=== PATIENT | female | born 1950 | race Caucasian/White ===

== ENCOUNTER 2018-06-23 00:57 | Emergency (ER) | payer MEDICARE, OTHER ==
[2018-06-23] MEDS ORDERED: Sodium Chloride 0.9% 0 ML ONE (01:01)
[2018-06-23 01:09] VITALS: BP 158/70
[2018-06-23] MEDS ORDERED: Sodium Chloride 0.9% 10 ML Syringe FLUSH PRN (01:31)
[2018-06-23] MEDS ORDERED: Ondansetron 4 MG/2 ML SDV IVPUSH ONE (01:31)
[2018-06-23] MEDS ORDERED: Sodium Chloride 0.9% 1,000 ML IV ONE (01:38)
[2018-06-23] MEDS ORDERED: Acetaminophen 325 MG Tab PO ONE (01:39)
--- NOTE | 2018-06-23 01:48 | EDM.PDOC ---
ED HPI GENERAL MEDICAL PROBLEM - General Chief Complaint: Gastrointestinal Problem Stated Complaint: Vomiting Time Seen by Provider: 06/23/18 01:30 Source of Information: Reports: Patient History Limitations: Reports: No Limitations - History of Present Illness INITIAL COMMENTS - FREE TEXT/NARRATIVE: Patient is a 67-year-old female who presents to the emergency department this morning with a complaint of nausea and vomiting. Patient states that approximately 24 hours ago she began a vomiting episode and vomited 5-6 times since Patient states that she is an insulin-dependent diabetic and does have poor diabetic control. Patient noticed that urine has become dark, but denies flank pain. Patient also denies chest pain, shortness of breath, abdominal pain , headache, or change in medication. Onset: Gradual Onset Date: 06/21/18 Duration: Day(s): Severity: Mild Improves with: Reports: None Worsens with: Reports: None Associated Symptoms: Reports: Nausea/Vomiting. Denies: Chest Pain, Cough, Fever /Chills, Headaches, Shortness of Breath - Related Data Allergies Allergy/AdvReac Type Severity Reaction Status Date / Time No Known Drug Allergies Allergy Cannot Verified 06/23/18 01:16 Remember Home Meds: Home Meds Aspirin [Adult Low Dose Aspirin EC] 81 mg PO DAILY 09/11/15 [History] Cholecalciferol (Vitamin D3) [Vitamin D3] 5,000 unit PO BID 09/11/15 [History] Cinnamon Bark [Cinnamon] 500 mg PO BID 09/11/15 [History] Clotrimazole/Betamethasone Dip [Lotrisone Cream] 45 gm TP BID PRN 09/11/15 [ History] DULoxetine [Cymbalta] 60 mg PO DAILY 09/11/15 [History] Insulin Detemir [Levemir] 60 unit SQ BEDTIME 09/11/15 [History] atorvaSTATin [Lipitor] 20 mg PO BEDTIME 09/11/15 [History] Cephalexin [Keflex] 750 mg PO BID #14 capsule 06/23/18 [Rx] Insulin Aspart [NovoLOG] 0 units SQ ASDIRECTED 06/23/18 [History] Metoprolol Succinate [Toprol XL] 25 mg PO DAILY 06/23/18 [History] Past Medical History HEENT History: Reports: Impaired Vision, Other (See Below) Other HEENT History: drainage to left ear. Cardiovascular History: Reports: CAD, Hypertension Respiratory History: Reports: Sleep Apnea, Other (See Below) Other Respiratory History: CPAP Gastrointestinal History: Reports: Hemorrhoids Genitourinary History: Reports: UTI, Recurrent [employer]GER History: Reports: Musculoskeletal History: Reports: Other (See Below) Other Musculoskeletal History: Ciatica Neurological History: Reports: Neuropathy, Diabetic Psychiatric History: Reports: Developmental Delay Endocrine/Metabolic History: Reports: Diabetes, Type II - Infectious Disease History Infectious Disease History: Reports: Measles - Past Surgical History HEENT Surgical History: Reports: None Cardiovascular Surgical History: Reports: None Respiratory Surgical History: Reports: None GI Surgical History: Reports: Cholecystectomy Female Surgical History: Reports: None Endocrine Surgical History: Reports: None Neurological Surgical History: Reports: None Musculoskeletal Surgical History: Reports: None Dermatological Surgical History: Reports: None Social & Family History - Family History Cardiac: Reports: Heart Failure Endocrine/Metabolic: Reports: Diabetes, type II Oncologic: Reports: Bone, Lung, Prostate ED ROS GENERAL - Review of Systems Review Of Systems: ROS reveals no pertinent complaints other than HPI. Constitutional: Reports: No Symptoms HEENT: Reports: No Symptoms Respiratory: Reports: No Symptoms Cardiovascular: Reports: No Symptoms Endocrine: Reports: No Symptoms GI/Abdominal: Reports: Nausea, Vomiting. Denies: Abdominal Pain, Black Stool, Bloody Stool, Constipation, Diarrhea : Reports: No Symptoms Musculoskeletal: Reports: No Symptoms Skin: Reports: No Symptoms Neurological: Reports: No Symptoms Psychiatric: Reports: No Symptoms Hematologic/Lymphatic: Reports: No Symptoms Immunologic: Reports: No Symptoms ED EXAM, GI/ABD - Physical Exam Exam: See Below Exam Limited By: No Limitations General Appearance: Alert, WD/WN, No Apparent Distress Eyes: Bilateral: Normal Appearance Nose: Normal Inspection, Normal Mucosa, No Blood Throat/Mouth: Normal Inspection, Normal Oropharynx, No Airway Compromise Head: Atraumatic, Normocephalic Neck: Normal Inspection, Supple, Non-Tender Respiratory/Chest: No Respiratory Distress, Lungs Clear, Normal Breath Sounds, No Accessory Muscle Use, Chest Non-Tender Cardiovascular: Tachycardia GI/Abdominal Exam: Normal Bowel Sounds, Soft, Non-Tender, No Organomegaly, No Distention, No Abnormal Bruit, No Mass Back Exam: Normal Inspection. No: CVA Tenderness (L), CVA Tenderness (R) Extremities: Normal Inspection, No Pedal Edema Neurological: Alert, Oriented, Normal Cognition Psychiatric: Normal Affect, Normal Mood Skin Exam: Warm, Intact, Normal Color, No Rash, Diaphoretic (Mildly) Lymphatic: No Adenopathy Course - Vital Signs Last Recorded V/S: Last Vital Signs Temp 98.7 F 06/23/18 02:14 Pulse 128 H 06/23/18 01:01 Resp 20 06/23/18 01:01 BP 158/70 H 06/23/18 01:01 Pulse Ox 98 06/23/18 01:01 - Orders/Labs/Meds Orders: Active Orders 24 hr Category Date Time Status Peripheral IV Care [RC] . DIRECTED Care 06/23/18 01:31 Ordered CULTURE URINE [RM] Stat Lab 06/23/18 01:10 Received Sodium Chloride 0.9% @ 999 MLS/HR (1000ml) Med 06/23/18 01:38 Ordered Sodium Chloride 0.9% [Normal Saline] 1,000 ml IV .BOLUS Sodium Chloride 0.9% [Saline Flush] Med 06/23/18 01:31 Ordered 10 ml FLUSH Q8HR PRN Peripheral IV Insertion Adult [OM.PC] Routine Oth 06/23/18 01:31 Ordered Medication Orders Sodium Chloride (Normal Saline) 1,000 mls @ 999 mls/hr IV .BOLUS ONE Stop: 06/23/18 02:38 Last Admin: 06/23/18 01:20 Dose: 999 mls/hr Sodium Chloride (Saline Flush) 10 ml FLUSH Q8HR PRN PRN Reason: keep vein open Labs: Laboratory Tests 06/23/18 06/23/18 06/23/18 Range/Units 01:10 01:15 01:15 WBC 15.55 H (5.00-10.00) 10^3/uL RBC 5.21 (3.80-5.50) 10^6/uL Hgb 15.2 (12.0-16.0) g/dL Hct 44.2 (37.0-47.0) % MCV 84.8 (82.0-92.0) fL MCH 29.2 (27.0-31.0) pg MCHC 34.4 (32.0-36.0) g/dL RDW 13.2 (11.5-14.5) % Plt Count 177 (150-400) 10^3/uL MPV 10.4 (7.4-10.4) fL Add Manual Diff Yes Neutrophils % (Manual) 91 H (50-70) % Lymphocytes % (Manual) 5 L (20-40) % Monocytes % (Manual) 4 (2-8) % Absolute Neutrophils 14.1505 Lymphocytes # (Manual) 0.7775 Monocytes # (Manual) 0.6220 Sodium 130 L (136-145) mmol/L Potassium 3.0 L (3.3-5.3) mmol/L Chloride 92 L (98-115) mmol/L Carbon Dioxide 18.7 L (21.0-32.0) mmol/L Anion Gap 22.3 H (5-15) mmol/L BUN 27 H (6-25) mg/dL Creatinine 2.04 H (0.51-1.17) mg/dL Est Cr Clr Drug Dosing 22.44 mL/min Estimated GFR (MDRD) 24 mL/min Glucose 172 H (75 - 99) mg/dL Calcium 9.2 (8.7-10.3) mg/dL Total Bilirubin 1.6 H (0.2-1.0) mg/dL AST 41 H (15-37) U/L ALT 42 (12-78) U/L Alkaline Phosphatase 182 H (46-116) IU/L Total Protein 9.2 H (6.4-8.2) g/dL Albumin 3.21 (3.00-4.80) g/dL Lipase 63 L (73-393) U/L Specimen Type . Urine Color Light yellow (YELLOW) Urine Appearance Turbid H (CLEAR) Urine pH 5.5 (5.0-9.0) Ur Specific [place] 1.015 (1.005-1.030) Urine Protein 100 H (NEGATIVE) mg/dL Urine Glucose (UA) 250 H (NEGATIVE) mg/dL Urine Ketones Negative (NEGATIVE) mg/dL Urine Occult Blood Large H (NEGATIVE) Urine Nitrite Positive H (NEGATIVE) Urine Bilirubin Negative (NEGATIVE) Urine Urobilinogen 1.0 (0.2-1.0) E.U./dL Ur Leukocyte Esterase Large H (NEGATIVE) Urine RBC 10-20 H (0-5) /HPF Urine WBC Packed (0-5) /HPF Ur Epithelial Cells Rare /LPF Amorphous Sediment Moderate H (0/HPF) /HPF Urine Bacteria Many H (NONE TO FEW) /HPF Meds: Medications Generic Name Dose Route Start Last Admin Trade Name Freq PRN Reason Stop Dose Admin Sodium Chloride 1,000 mls @ 999 mls/hr 06/23/18 01:38 06/23/18 01:20 Normal Saline IV 06/23/18 02:38 999 mls/hr .BOLUS ONE Administration Sodium Chloride 10 ml 06/23/18 01:31 Saline Flush FLUSH Q8HR PRN keep vein open Discontinued Medications Generic Name Dose Route Start Last Admin Trade Name Freq PRN Reason Stop Dose Admin Acetaminophen 650 mg 06/23/18 01:39 06/23/18 01:44 Tylenol PO 06/23/18 01:40 650 mg NOW ONE Administration Ceftriaxone Sodium 1 gm 06/23/18 02:05 06/23/18 02:15 Rocephin IVPUSH 06/23/18 02:06 1 gm ONETIME ONE Administration Sodium Chloride Confirm 06/23/18 01:01 06/23/18 01:44 Normal Saline Administered 06/23/18 01:02 Not Given Dose 1,000 mls @ as directed .ROUTE .STK-MED ONE Ondansetron HCl 4 mg 06/23/18 01:31 06/23/18 01:44 Zofran IVPUSH 06/23/18 01:32 4 mg ONETIME ONE Administration Ondansetron HCl 8 mg 06/23/18 02:23 Zofran Odt PO 06/23/18 02:24 ONETIME ONE - Re-Assessments/Exams Free Text/Narrative Re-Assessment/Exam: 06/23/18 02:25 Patient afebrile, vital signs stable, nausea resolved. Patient given 650 mg Tylenol, and 1 g Rocephin IV in ER. Prescription for Keflex. Patient will follow-up with PCP in 2-3 days. 06/23/18 02:33 Departure - Departure Time of Disposition: 02:29 Disposition: Home, Self-Care 01 Condition: Good Clinical Impression: Vomiting, UTI (urinary tract infection), bacterial, Hypokalemia - Discharge Information Prescriptions: Cephalexin [Keflex] 750 mg PO BID #14 capsule Instructions: Nausea and Vomiting, Adult, [id number], Urinary Tract Infection , Adult, [id number], Hypokalemia, Urine Culture and Sensitivity Testing Referrals: Josiane Delgadillo PA-C [Physician [employer]] - Forms: ED Department Discharge Additional Instructions: Follow-up at [facility] in next 3-5 days for recheck. Return to emergency room sooner if symptoms continue or worsen. Take medication as prescribed. - My Orders Last 24 Hours: My Active Orders 06/23/18 01:10 CULTURE URINE [RM] Stat 06/23/18 01:31 Peripheral IV Care [RC] . DIRECTED Sodium Chloride 0.9% [Saline Flush] 10 ml FLUSH Q8HR PRN Peripheral IV Insertion Adult [OM.PC] Routine 06/23/18 01:38 Sodium Chloride 0.9% @ 999 MLS/HR (1000ml) Sodium Chloride 0.9% [Normal Saline] 1,000 ml IV .BOLUS - Assessment/Plan Last 24 Hours: My Active Orders 06/23/18 01:10 CULTURE URINE [RM] Stat 06/23/18 01:31 Peripheral IV Care [RC] . DIRECTED Sodium Chloride 0.9% [Saline Flush] 10 ml FLUSH Q8HR PRN Peripheral IV Insertion Adult [OM.PC] Routine 06/23/18 01:38 Sodium Chloride 0.9% @ 999 MLS/HR (1000ml) Sodium Chloride 0.9% [Normal Saline] 1,000 ml IV .BOLUS Assessment:: UTI Plan: Follow-up with PCP
[2018-06-23] MEDS ORDERED: cefTRIAXone 1 GM Vial IVPUSH ONE (02:05)
[2018-06-23 02:15] LABS: ANION GAP 22.3 mmol/L (5-15)
[2018-06-23] MEDS ORDERED: Ondansetron 4 MG Tab.DIS PO ONE (02:23)
== END 2018-06-23 02:50 | disposition home or self-care (01) ==
LOC: KA.ED 00:57
DX: N39.0 Urinary tract infection, site not specified (principal); B96.89 Other specified bacterial agents as the cause of diseases classified elsewhere; E87.6 Hypokalemia; R11.2 Nausea with vomiting, unspecified; I25.10 Atherosclerotic heart disease of native coronary artery without angina pectoris; I10 Essential (primary) hypertension; E11.40 Type 2 diabetes mellitus with diabetic neuropathy, unspecified; Z79.82 Long term (current) use of aspirin; Z79.899 Other long term (current) drug therapy; Z79.4 Long term (current) use of insulin
CPT/HCPCS: 36415; 80053; 81001; 83690; 85025; 87086; 87088; 87186; 96361; 96374; 96375; 99283-25; 99285; A9270-GY; J0696; J2405; J7030

== ENCOUNTER 2021-03-27 14:35 | Observation (INO) | payer MEDICARE, OTHER ==
[2021-03-27] MEDS ORDERED: Ondansetron 4 MG/2 ML SDV IVPUSH ONE (14:53)
[2021-03-27] MEDS ORDERED: HYDROmorphone 1 MG/ML Syringe IVPUSH ONE (14:54)
[2021-03-27] MEDS ORDERED: Sodium Chloride 0.9% 1,000 ML IV SCH (15:00)
[2021-03-27] MEDS ORDERED: Sodium Chloride 0.9% 10 ML Syringe FLUSH PRN (15:07)
[2021-03-27 15:32] LABS: ANION GAP 17.7 mmol/L (5-15); CHLORIDE,CL 92 mmol/L (98-107); SODIUM,NA 129 mmol/L (136-145)
[2021-03-27] MEDS ORDERED: Ondansetron 4 MG Tab.DIS PO PRN (17:56)
[2021-03-27] MEDS ORDERED: HYDROmorphone 1 MG/ML Syringe IVPUSH PRN ×2 (18:00→18:15)
[2021-03-27] MEDS ORDERED: Acetaminophen 325 MG Tab PO PRN (18:17)
[2021-03-27] MEDS ORDERED: Insulin Lispro 100 Unit/ML 3 ML KwikPen SUBCUT SCH (19:15)
[2021-03-27] MEDS: Sodium Chloride 0.9% 1,000 ML IV SCH (19:18)
[2021-03-27] MEDS: Tamsulosin 0.4 MG Cap.ER PO SCH (19:21)
[2021-03-27] MEDS: NOVOLOG FLEXPEN **OWN MED SUBCUT SCH (19:50)
[2021-03-27] MEDS ORDERED: DULoxetine 30 MG Cap PO SCH ×2 (21:00)
[2021-03-27] MEDS ORDERED: Aspirin 81 MG Tab.EC PO SCH (21:00)
[2021-03-27] MEDS ORDERED: Insulin Glargine,Hum.Rec.Anlog 100 UNIT/ML 3 ML Pen SUBCUT SCH (21:00)
[2021-03-27] MEDS ORDERED: Metoprolol Succinate 25 MG Tab.ER PO SCH (21:00)
[2021-03-27] MEDS: LEVEMIR SUBCUT SCH (22:35)
[2021-03-28] MEDS: Sodium Chloride 0.9% 1,000 ML IV SCH (02:58)
[2021-03-28 06:54] VITALS: BP 125/69; PULSE 84
[2021-03-28 07:37] LABS: ANION GAP 15.3 mmol/L (5-15)
[2021-03-28] MEDS: NOVOLOG FLEXPEN **OWN MED SUBCUT SCH ×2 (08:41→11:51)
[2021-03-28] MEDS: Tamsulosin 0.4 MG Cap.ER PO SCH (08:41)
[2021-03-28] MEDS: LEVEMIR SUBCUT SCH (08:45)
[2021-03-28] MEDS ORDERED: Aspirin 81 MG Tab.EC PO SCH (21:00)
== END 2021-03-28 12:25 | disposition home or self-care (01) ==
LOC: KA.ED 14:35 → KA.MS 16:59
PROVIDERS: ADMIT Physician Assistant; ATTEND Nurse Practitioner Family
DX: N13.2 Hydronephrosis with renal and ureteral calculous obstruction (principal); E87.1 Hypo-osmolality and hyponatremia; E87.8 Other disorders of electrolyte and fluid balance, not elsewhere classified; D72.829 Elevated white blood cell count, unspecified; I12.9 Hypertensive chronic kidney disease with stage 1 through stage 4 chronic kidney disease, or unspecified chronic kidney disease; N18.4 Chronic kidney disease, stage 4 (severe); E11.40 Type 2 diabetes mellitus with diabetic neuropathy, unspecified; E11.22 Type 2 diabetes mellitus with diabetic chronic kidney disease; I25.10 Atherosclerotic heart disease of native coronary artery without angina pectoris; E78.5 Hyperlipidemia, unspecified; N25.0 Renal osteodystrophy; G47.30 Sleep apnea, unspecified; G47.00 Insomnia, unspecified; F41.9 Anxiety disorder, unspecified; F32.A Depression, unspecified; Z87.442 Personal history of urinary calculi; Z79.82 Long term (current) use of aspirin; Z79.4 Long term (current) use of insulin; Z79.899 Other long term (current) drug therapy; Z20.822 Contact with and (suspected) exposure to COVID-19; Z87.891 Personal history of nicotine dependence
CPT/HCPCS: 36415; 74176; 80048; 80053; 81001; 82947; 85025; 86140; 96374; 96375; 99284; 99285-25; A9270-GY; G0378; J1170; J2405; J7030; U0002